=== PATIENT | male | born 1990 | race American Indian/Alaskan Native ===

== ENCOUNTER 2018-07-16 06:47 | Emergency (ER) | payer SELFPAY ==
[2018-07-16 07:24] VITALS: BP 124/80
== END 2018-07-16 09:18 | disposition left against medical advice (07) ==
LOC: ED 06:47
DX: K08.89 Other specified disorders of teeth and supporting structures (principal); Z53.21 Procedure and treatment not carried out due to patient leaving prior to being seen by health care provider

== ENCOUNTER 2018-07-17 15:43 | Emergency (ER) | payer SELFPAY ==
[2018-07-17 15:56] VITALS: BP 109/73
== END 2018-07-17 18:00 ==
LOC: ED 15:43
DX: K08.89 Other specified disorders of teeth and supporting structures (principal); Z53.21 Procedure and treatment not carried out due to patient leaving prior to being seen by health care provider